=== PATIENT | male | born 1945 | race Caucasian/White ===

== ENCOUNTER 2019-01-19 11:58 | Outpatient (REF) | payer MEDICARE, SELFPAY ==
[2019-01-19 13:41] LABS: TSH (W/Ref FT4) 3.58 uIU/mL (0.36-3.74)
== END 2019-01-19 12:18 ==
LOC: LBN 11:58
PROVIDERS: PCP Family Medicine; Visit Provider Family Medicine
DX: H50.9 Unspecified strabismus (principal); I10 Essential (primary) hypertension; F32.9 Major depressive disorder, single episode, unspecified
CPT/HCPCS: 84443

== ENCOUNTER 2019-01-26 00:44 | Outpatient (CLI) | payer MEDICARE, OTHER, SELFPAY ==
--- NOTE | 2019-01-26 11:20 | DI.MRI_ITS ---
SYMPTOM/DIAGNOSIS: NEW ONSET LATE-LIFE STRABISMUS R/O STROKE/MASS H50.0 STRABISMUS MRI BRAIN: Routine noncontrast examination was performed. The ventricles and sulci are consistent with the patient's age. There is mild global cerebral atrophy. There are areas of hyper intense signal in the white matter on the T2 and FLAIR images most suggestive of small vessel ischemic disease. The diffusion weighted images show no evidence of restricted diffusion. No intracranial hemorrhage is present. No intracranial mass, midline shift or mass effect is identified. The ventricles are intact. The basilar cisterns are patent. A normal flow void is seen in the [place]. Mucous retention cysts or polyps are seen in the maxillary sinuses. There is mild mucosal thickening in the maxillary sinuses and a few ethmoid air cells. IMPRESSION: Cerebral atrophy and small vessel ischemic disease. No evidence of an intracranial mass, hemorrhage or infarct.
== END 2019-01-26 01:04 ==
PROVIDERS: PCP Family Medicine; Visit Provider Family Medicine
DX: H50.89 Other specified strabismus (principal); G31.89 Other specified degenerative diseases of nervous system; I67.9 Cerebrovascular disease, unspecified; J32.8 Other chronic sinusitis
CPT/HCPCS: 70551

== ENCOUNTER → 2019-01-27 10:03 | Outpatient (BNVA) | payer MEDICARE, SELFPAY | PROVIDERS: PCP Family Medicine; Visit Provider Psychiatry & Neurology Neurology | DX: H53.2 Diplopia (principal); H50.10 Unspecified exotropia; I10 Essential (primary) hypertension | CPT/HCPCS: 99203; 99214 ==

== ENCOUNTER 2019-01-27 11:06 | Outpatient (CLI) | payer MEDICARE, OTHER, SELFPAY ==
[2019-02-06 22:11] LABS: Striational(Striated Muscle) A Negative titer (<1:120)
== END 2019-01-27 11:26 ==
PROVIDERS: PCP Family Medicine; Visit Provider Psychiatry & Neurology Neurology
DX: H53.2 Diplopia (principal); H50.10 Unspecified exotropia; I10 Essential (primary) hypertension
CPT/HCPCS: 36415; 99214; 83519; 83520

== ENCOUNTER → 2019-02-02 14:21 | Outpatient (BNVA) | payer MEDICARE, OTHER, SELFPAY | PROVIDERS: PCP Family Medicine; Referring Provider Family Medicine; Visit Provider Surgery | DX: L72.9 Follicular cyst of the skin and subcutaneous tissue, unspecified (principal); I10 Essential (primary) hypertension | CPT/HCPCS: 99203; 99213 ==

== ENCOUNTER 2019-02-17 07:51 | Day surgery (SDC) | payer MEDICARE, OTHER, SELFPAY ==
[2019-02-17 08:10] VITALS: BP 140/93; PULSE 71; RESP 18; TEMP 36.4; O2SAT 99
[2019-02-17] MEDS: Bupivacaine 0.25% Pres-Free 10 ML VIAL (09:00)
--- NOTE | 2019-02-17 09:10 | SKI_PTH ---
PATIENT: Jomar Pualson LOC: [facility] U#:[id number] AGE/SX: 73/M ROOM: RE02/17/[address]: Tawanna Vaca MD : [id number] BED: DIS: 02/17/2019 SPEC #: [id number] RECD: 02/17/19 12:46 STATUS: BABATUNDE REQ #: [id number] MORE: 02/17/19 09:[address]: Tawanna Vaca DEPT: Surgical Specimen RECD BY: Karen Bautista ENTERED: 02/17/19 12:46 SP TYPE: JACKIE PORTER DR: Alec Tabares DO Tissues: 1 - SKIN CYST/TAG/DEBRIDEMENT Procedures: SKIN BIOPSY LEVEL 3 Comments: [id number]
--- NOTE | 2019-02-17 09:20 | PDOC.DSDIS_ITS ---
Discharge Plan Disposition Patient Disposition: HOME Condition: Good Discharge Details Reason For Visit: Excision left cheek skin cyst Attending Provider: Tawanna Vaca Primary Care Provider: Alec Tabares Home Meds and New Rx's Prescriptions: Continued bupropion HCl 150 mg tablet extended release 24 hr 150 mg PO QAM Qty: 90 RF: 3 omeprazole 20 mg capsule,delayed release(DR/EC) 20 mg PO DAILY Qty: 90 RF: 3 flunisolide 25 mcg (0.025 %) spray,non-aerosol 2 spray NS DAILY Qty: 3 RF: 3 amoxicillin 500 MG tablet 2,000 mg PO ONCE RF: 0 atorvastatin 20 mg tablet 20 mg PO DAILY Qty: 90 RF: 3 hydrochlorothiazide 25 mg tablet 25 mg PO DAILY Qty: 90 RF: 3 Discharge Instructions Additional Instructions: May shower as usual Leave the steri strip until it starts to curl up Referrals: Tawanna Vaca MD [ [facility] STAFF PHYSICIAN] - (6-10 days for suture removal) Activity:: Activity as Tolerated Diet:: As Tolerated Discharge Orders Discharge Orders: Discharge Order (Routine); Ordered 02/17/19 Ordered By: Tawanna Vaca DS: Diagnosis Discharge Diagnosis (1) Benign cyst of skin: Status: Acute
--- NOTE | 2019-02-17 11:05 | ROE_ITS ---
REPORT OF OPERATIVE PROCEDURE DATE OF PROCEDURE February 17, 2019 PREOPERATIVE DIAGNOSIS Chronic left cheek skin cyst. POSTOPERATIVE DIAGNOSIS Chronic left cheek skin cyst. PROCEDURE Excision left cheek skin cyst. SURGEON Tawanna Vaca M.D. ANESTHESIA Local. INDICATIONS This is a 73-year-old man with a chronic draining cyst on his left cheek that needs to be evacuated o f its contents every few days. This has been present for several years, but started draining in the p ast three to six months. PROCEDURE DESCRIPTION He was placed supine on the operating table and his left cheek was prepped and draped sterilely. The cyst was located down near the mandible just adjacent to the nasal labial fold region. The skin here was infiltrated with local anesthetic after prepping and draping sterilely. A small elliptical incis ion made to include the cyst opening. The chronic inflammatory cyst was removed sharply down into nor mal fatty tissue. Hemostasis was achieved with cautery. The skin was then closed with interrupted #6- 0 Prolene sutures and dressed with a Steri-Strip. He tolerated the procedure well and was stable to R ecovery. The cyst itself measured about 8 mm with the excision diameter being about 1.2 cm. CC: Alec Tabares D.O.
== END 2019-02-17 09:49 | disposition home or self-care (01) ==
PROVIDERS: PCP Family Medicine; Visit Provider Surgery
PROC: (CPT 11442; principal; 2019-02-17 09:00)
DX: L72.0 Epidermal cyst (principal)
CPT/HCPCS: 11442; 88304

== ENCOUNTER → 2019-02-23 08:52 | Outpatient (BNVA) | payer MEDICARE, OTHER, SELFPAY | PROVIDERS: PCP Family Medicine; Referring Provider Family Medicine; Visit Provider Surgery | DX: Z48.02 Encounter for removal of sutures (principal) ==

== ENCOUNTER 2019-04-15 01:45 | Outpatient (CLI) | payer MEDICARE, OTHER, SELFPAY ==
--- NOTE | 2019-04-15 14:51 | DI.CT_ITS ---
EXAM: CT SINUS WO CLINICAL HISTORY: RETENTION CYST OF NASAL SINUS J34.1, SINUS PRESSURE J34.89, POST NASAL DRIP TECHNIQUE: Noncontrast FINDINGS: There is a mucous retention cyst at the floor of the right maxillary sinus measuring 2 cm. A 10 mil limeter cyst is seen at the floor of the left maxillary sinus. The ostiomeatal complexes appear gill nt. There is minimal mucosal thickening of the ethmoid sinuses. There is norman bullosa of the left middle turbinate. There is minimal nasal septal deviation toward the right. The orbits are unremar kable. IMPRESSION: Mucous retention cysts in both maxillary sinuses.
== END 2019-04-15 02:05 ==
PROVIDERS: PCP Family Medicine; Visit Provider Otolaryngology Otolaryngology/Facial Plastic Surgery
DX: J34.1 Cyst and mucocele of nose and nasal sinus (principal); J34.89 Other specified disorders of nose and nasal sinuses; R09.82 Postnasal drip
CPT/HCPCS: 70486

== ENCOUNTER 2020-03-08 04:37 | Outpatient (CLI) | payer MEDICARE, OTHER, SELFPAY ==
[2020-03-08 09:43] LABS: Anion Gap 4.5 mmol/L (3-11); BUN 25 mg/dL (7-18); CO2 32.5 mmol/L (21.0-32.0); CREATININE 1.05 mg/dL (0.70-1.30); Calculated LDL 139 mg/dL (<100); Chloride 103 mmol/L (98-107); Cholesterol 220 mg/dL (<200); Glucose 102 mg/dL (74-106); HDL Cholesterol 73 mg/dL (40-60); Potassium 4.4 mmol/L (3.5-5.1); Sodium 140 mmol/L (136-145); Triglyceride 41 mg/dL (<150)
== END 2020-03-08 04:57 ==
PROVIDERS: PCP Family Medicine; Visit Provider Family Medicine
DX: I10 Essential (primary) hypertension (principal)
CPT/HCPCS: 36415; 80048; 80061

== ENCOUNTER 2021-04-11 03:50 | Outpatient (CLI) | payer MEDICARE, OTHER, SELFPAY ==
[2021-04-11 22:32] LABS: PSA, Screening 2.7 ng/mL (0.0-6.5)
[2021-04-12 10:40] LABS: HIV-1/2 Ag & Ab Screen Negative (Negative)
[2021-04-12 11:01] LABS: Hepatitis C Ab w Rflx HCV PCR Negative (Negative)
== END 2021-04-11 03:51 | disposition home or self-care (01) ==
LOC: LBO 03:50
PROVIDERS: PCP Family Medicine; Visit Provider Family Medicine
DX: Z11.3 Encounter for screening for infections with a predominantly sexual mode of transmission (principal); Z11.4 Encounter for screening for human immunodeficiency virus [HIV]; Z11.59 Encounter for screening for other viral diseases; Z12.5 Encounter for screening for malignant neoplasm of prostate; Z84.2 Family history of other diseases of the genitourinary system
CPT/HCPCS: 36415; 84153; 86803; 87389

== ENCOUNTER 2022-12-21 00:14 | Outpatient (CLI) | payer MEDICARE, SELFPAY ==
--- NOTE | 2022-12-21 07:24 | DI.MRI_ITS ---
Exam(s) MR BRAIN WO EXAM: MR BRAIN WO CLINICAL HISTORY: 6 months of progressive memory loss, R41.3 TECHNIQUE: Multiplanar multisequence MRI of the brain was performed. CT CT SINUS WO from 04/15/2019 FINDINGS: VENTRICLES AND EXTRA AXIAL SPACES: Normal in size and morphology for the patient's age. MIDLINE SHIFT: None. CEREBRAL PARENCHYMA: No focus of restricted diffusion to suggest acute infarct. No space-occupying le [place] identified. There are several areas of hyperintense signal in the white matter on the T2 and FLA IR images most consistent with small vessel ischemic disease. There is global symmetric volume loss likely reflecting cerebral atrophy. HEMORRHAGE: None. BRAINSTEM/CEREBELLUM: Normal. CALVARIUM: Normal. VISUALIZED PARANASAL SINUSES/MASTOIDS:Mucous retention cysts or polyps are seen in the maxillary sinu ses bilaterally. [place]: Normal flow void. [place]: Unremarkable. OTHER FINDINGS: None. IMPRESSION: 1. Age-related cerebral atrophy and small vessel ischemic disease. 2. No evidence of an acute infarct. DATA REPOSITORY:
== END 2022-12-21 00:34 ==
LOC: DI 00:15
PROVIDERS: PCP Family Medicine; Visit Provider Family Medicine
DX: R41.3 Other amnesia (principal); I67.89 Other cerebrovascular disease
CPT/HCPCS: 70551

== ENCOUNTER 2024-10-12 14:20 | Observation (INO) | payer MEDICARE, SELFPAY ==
[2024-10-12] VITALS (18 sets, daily range): BP systolic 141–147; BP diastolic 72–96; PULSE 53–75; RESP 14–21; TEMP 36.8–37.2; O2SAT 95–98
--- NOTE | 2024-10-12 14:15 | RT.EKG_ITS ---
APPROVED REPORT Exam: Resting ECG Reason for Exam: tia Patient Location: E HR:51 bpm ECG Measurements Heart Rate 51 AXIS ME 186 P 9 QRSd 97 QRS -10 QT 460 T 48 QTc 425 Conclusion Sinus bradycardia 51 noraml axis no stemi
--- NOTE | 2024-10-12 14:48 | ED.GENADUL_ITS ---
Discharge Plan Disposition Patient Disposition: Admit to [facility] Condition: Stable Discharge Details Chief Complaint: AMS/LOC Clinical Impression: TIA (transient ischemic attack) Admit Date/Time: 10/12/24 17:04 Admit Provider: Jakob Hensley Attending Provider: Jakob Hensley Primary Care Provider: Unknown,Unknown ED Provider: Harjinder Ruff HPI General Date/Time Provider Initiated Documentation: 10/12/24 14:28 . HPI Narrative: 79-year-old gentleman with past medical history of depression, hypertension presents for evaluation of speech difficulty. Patient reports that he had been sitting in the car in the parking lot while his went into the grocery store. He states that he started to not feel very well, he felt very hot and flushed. He states that the dog got sick on him and this caused him to feel worse. When the returned to the car, approximately 1 hour after last seeing him, she noted that his speech seemed confused. 911 was called. On 911 arrival, patient was having fluent speech and no confusion. reports that a similar event occurred last year when he had a urinary tract infection in [place]. He states that at that time he was evaluated for a stroke and had an MRI of his brain which did not reveal any abnormality acutely. He reports that he is feeling better now that he is not in the car and no longer feeling hot or flushed. He states that he denies any chest pain or headache. Related Data Home Medications ?Medication ?Instructions ?Recorded ?Confirmed trazodone 50 mg tablet 50 mg PO QHS PRN insomnia #90 tabs 11/05/22 10/12/24 bupropion HCl 150 mg 24 hr tablet, 150 mg PO QAM #90 tabs 06/10/23 10/12/24 extended release flunisolide 25 mcg (0.025 %) nasal See Rx Instructions .Route 10/14/23 10/12/24 spray .COMPLEX #25 mL hydrochlorothiazide 25 mg tablet 25 mg PO DAILY #90 tab-caps 10/14/23 10/12/24 atorvastatin 20 mg tablet 20 mg PO DAILY #90 tab-caps 04/16/24 10/12/24 omeprazole 20 mg capsule,delayed See Rx Instructions .Route 10/08/24 10/12/24 release .COMPLEX #90 caps Previous Rx's ?Medication ?Instructions ?Recorded trazodone 50 mg tablet 50 mg PO QHS PRN insomnia #90 tabs 11/05/22 bupropion HCl 150 mg 24 hr tablet, 150 mg PO QAM #90 tabs 06/10/23 extended release flunisolide 25 mcg (0.025 %) nasal See Rx Instructions .Route 10/14/23 spray .COMPLEX #25 mL hydrochlorothiazide 25 mg tablet 25 mg PO DAILY #90 tab-caps 10/14/23 atorvastatin 20 mg tablet 20 mg PO DAILY #90 tab-caps 04/16/24 omeprazole 20 mg capsule,delayed See Rx Instructions .Route 10/08/24 release .COMPLEX #90 caps Allergies Allergy/AdvReac Type Severity Reaction Status Date / Time oxycodone Allergy Intermediate Itching Verified 10/12/24 17:51 delusion morphine AdvReac delusions, Verified 10/12/24 17:51 confusion General Stated Complaint: AMS/LOC LOLY: 2 Exam Narrative Exam Narrative: Review of Systems: All systems reviewed & are unremarkable except as noted in HPI and below Well-developed, no acute distress NCAT PERRL, normal conjunctiva , no nystagmus Bradycardia no murmur Unlabored respiratory effort , clear bilaterally Nondistended abdomen no focal neurologic deficits, cranial nerves intact, good strength throughout, no past-pointing, gait is normal Course Vital Signs Vital signs: Vital Signs Temperature 36.8 C 10/12/24 14:21 Pulse 60 10/12/24 14:21 Respiratory Rate 15 10/12/24 14:21 Blood Pressure 146/77 H 10/12/24 14:21 Pulse Oximetry 98 10/12/24 14:21 Temperature 36.8 C 10/12/24 14:27 Temperature Source Oral 10/12/24 14:27 Pulse 60 10/12/24 14:27 Respiratory Rate 15 10/12/24 14:27 Respiratory Effort Normal, Non-Labored 10/12/24 14:27 Respiratory Depth Normal 10/12/24 14:27 Respiratory Pattern Normal 10/12/24 14:27 Blood Pressure 146/77 H 10/12/24 14:27 Blood Pressure Position Supine 10/12/24 14:27 Pulse Oximetry 98 10/12/24 14:27 Oxygen Delivery Method Room Air 10/12/24 14:27 Oxygen Flow Rate 0 10/12/24 14:21 Medical Decision Making Emergent evaluation of acute altered mental status now resolved. Initial differential includes vasovagal episode, presyncope, cardiac dysrhythmia, TIA. At this time the patient does not have a focal neurologic deficit to indicate an ongoing CVA process. EKG obtained and independently interpreted: Sinus bradycardia 51 normal axis no STEMI. Will evaluate for metabolic etiologies of his symptoms, get head CT and continue to monitor for any changes in his status. Lab work reviewed, no leukocytosis or anemia. There is no significant electrolyte derangement. Creatinine is 1.5, no priors are available for comparison. Ammonia and free T4 are within normal limits. Troponin is not elevated. Urinalysis does not reveal any infection. CT imaging obtained and that does indicate an acute stroke. Concern for TIA given symptomology, cur rently resolved at this time. Patient not medically optimized, will admit to the hospital for further TIA workup and medical management. Quality:SDOH Health Related Social Needs: No Data to Display PFSH All Active Problems (Updated 10/12/24 @ 19:35 by Harjinder Ruff MD) DVT prophylaxis (Acute) TIA (transient ischemic attack) (Acute) Chronic rhinitis (Chronic 08/14/11) Depressive disorder (Chronic) previously Asya Collins, counselor in past. Essential hypertension (Chronic) previous varied 110 - 148; Gastroesophageal reflux disease without esophagitis (Chronic 08/14/11) EGD 03/2017 neg (path pending) Family hx of alcoholism (Chronic 12/03/12) Other hyperlipidemia (Chronic 11/08/15) Risk 15% calculated 01/2015, Atorvastatin begun Nasal congestion (Acute) Abnormal auditory perception (Acute) Post-nasal drip (Acute) Other insomnia (Acute) Sinus pressure (Acute) Neck pain (Acute 08/14/11) History of alcoholism (Acute 12/03/12) Hernia of anterior abdominal wall (Acute 01/18/15) Exotropia, right eye (Acute) History of sleep apnea (Acute) severe central sleep apnea sleep study 03/01/19 04/08/19-CPAP Titration Study-[facility] Central sleep apnea (Acute) 03/12/19: CPAP 8-18cm D.CESILIA Smith Unspecified disorder of nose and nasal sinuses (Acute 06/16/19) Nasal vestibular stenosis Zamudio Deviated nasal septum (Acute 06/16/19) Zamudio [place]'s disease (Acute) 06/07/20 [facility] History of basal cell cancer (Acute) 06/07/20 Nodular [place] micronodular left supraclavicular(05/2017) Left nasal sidewall (09/2017) excised with Moh's surgery Dry eye of left side (Acute) Family history of prostate cancer in father (Acute) PSA WNL Chronic right shoulder pain (Acute) With loss of ROM, Hx surgical repair? Memory change (Acute) Erectile disorder (Acute) Onychomycosis (Acute) Nail dystrophy (Acute) Onychogryphosis (Acute) Medical History Benign cyst of skin Excision left cheek skin cyst 02/17/19, Dr Tawanna Vaca, [facility] History of gastroesophageal reflux (GERD) Surgical History History of ankle surgery left S/P right rotator cuff repair History of total bilateral knee replacement (TKR) (~03/2014) 2013 both at same time History of tonsillectomy oral surg for sleep apnea (11/10/99) [place], for sleep apnea Repair of inguinal hernia (03/09/15) bilateral: Dr Crystal-R direct,L indirect EGD - MAC (04/09/17) Colonoscopy - IV Sedation (02/25/15) Dr. Zechariah Santana Family History Mother , Alzheimer at age 90. Alzheimers disease Father , Compl Prostate CA at age 87. Personal history of malignant neoplasm Alzheimers disease Sister , Breast Cancer at age 55. No problems noted. Brother , Accident at age 21. No problems noted. Other Family hx of alcoholism Social History (Updated 10/12/24 @ 18:20 by Jakob Hensley) Smoking/Tobacco Use Status: Never Smoking risk assessment performed?: Yes Alcohol Intake: former Year quit: 1989 Drug use: Never Substance use type: does not use Details: pt reports hasnt had any alcohol for 20+ years. Adopted: No Caregiver/Support person: No Foster care: No Household members: spouse Housing: house Number of Children: 2 Communication Needs: None Education Level: college Details: Associates current occupation: retired Current gender identity: male What type of physical activity do you participate in: none and other Details: Stays active Seatbelt use: always Drive intox or ride w/intox residential driver: No Water heater temp set <120 deg: Yes Working smoke detector in home: Yes Fire extinguisher in home: Yes Carbon monox detector in home: Yes Firearms in home: Yes Firearms unloaded and locked: Yes Do you feel safe at home: Yes Do you feel safe in your relationship?: Yes Additional Social history: 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 Just moved back from [place] to [place] with , who has some dementia
[2024-10-12 14:54] LABS: Abs Immature Grans 0.01 10^3/uL (0.0-0.06); Absolute Basophil Count 0.05 10^3/uL (0.0-0.2); Absolute Lymphocyte Count 0.94 10^3/uL (1.2-3.4); Absolute Monocyte Count 0.45 10^3/uL (0.1-0.8); Absolute Neutrophil Count 3.05 10^3/uL (1.2-6.7); Eosinophils % 8.2 %; HCT 43.8 % (40.0-50.0); HGB 14.1 g/dL (13.5-17.5); Immature Grans % 0.2 %; Lymphocytes % 19.2 %; MCH 30.3 pg (27.0-33.0); MCHC 32.2 % (32.0-36.0); MCV 94 fL (80-95); MPV 11.3 fL (8.0-11.0); Monocytes % 9.2 %; Neutrophils % 62.2 %; Platelet Count 146 10^3/uL (130-400); RBC 4.66 10^6/uL (4.36-5.78); RDW 13.8 % (11.8-14.1); RDW-SD 47.6 fL
[2024-10-12 15:14] LABS: Bilirubin Negative (Negative); Blood Negative (Negative); Clarity Clear (Clear); Glucose Negative (Negative); Ketones Negative (Negative); Leukocyte Esterase Negative (Negative); Nitrite Negative (Negative); Urobilinogen 0.2 mg/dL (Up to 0.2)
[2024-10-12 15:25] LABS: TSH (W/Ref FT4) 6.28 uIU/mL (0.36-3.74)
[2024-10-12 15:30] LABS: ETHANOL BLOOD < 3.0 mg/dL (<10)
--- NOTE | 2024-10-12 15:30 | DI.CT_ITS ---
Exam(s) CT BRAIN NECK CTA EXAM: CT BRAIN NECK CTA CLINICAL HISTORY: ams. TECHNIQUE: Imaging Protocol: Axial CT angiography was performed with multi-slice acquisition and mu lti-planar and MIP reconstructions. CONTRAST MATERIAL: Intravenous: Omnipaque 350 Contrast volume:[address] SINUS WO from 04/15/2019 MR MR BRAIN WO from 12/21/2022 FINDINGS: CT Head W/O and W contrast: Ventricles and Extra axial spaces: Normal in size and morphology for the patient's age. Hemorrhage: None. Cerebral parenchyma: No evidence of acute infarct or mass. Mild atrophy. Mild white matter change s of small vessel disease. Midline shift: None. Brainstem/Cerebellum: No acute findings.. Calvarium: Normal. Visualized Paranasal sinuses/Mastoids: Mild mucosal thickening at the floors of the maxillary sinuses . Soft Tissues: Unremarkable. Enhancement: Normal. CTA Brain W: Internal Carotid Arteries: Petrous: Normal. Cavernous: Normal. Cerebral: Normal. Middle Cerebral Arteries: Right: No aneurysm, occlusion or significant stenosis. Left: No aneurysm, occlusion or significant stenosis. Anterior Cerebral Arteries: Right: No aneurysm, occlusion or significant stenosis. Left: No aneurysm, occlusion or significant stenosis. Posterior cerebral Arteries: Right: No aneurysm, occlusion or significant stenosis. Left: No aneurysm, occlusion or significant stenosis. Vertebral Arteries: Right: No aneurysm, occlusion or significant stenosis. Left: No aneurysm, occlusion or significant stenosis. Basilar Artery: No aneurysm, occlusion or significant stenosis. CTA Neck W: Common Carotid: Mild plaque at the bulbs left greater than right.. Right: No dissection, occlusion or significant stenosis. Left: No dissection, occlusion or significant stenosis. External Carotid: Right: No dissection, occlusion or significant stenosis. Left: No dissection, occlusion or significant stenosis. Internal Carotid: Right: Tortuous distally. No dissection, occlusion or significant stenosis. Left: Tortuous distally. No dissection, occlusion or significant stenosis. Vertebral Artery: Right: No dissection, occlusion or significant stenosis. Left: No dissection, occlusion or significant stenosis. Lung Apices: No acute findings. Bones: No acute abnormality. Degenerative changes present in the cervical spine. Soft Tissues: Normal. IMPRESSION: 1. CTA brain: Normal CTA examination of the [place]. 2. Head CT: Unremarkable CT Head. 3. CTA neck: Mild plaque at the common carotid bulbs. No significant stenosis in the carotid or vert ebral arteries. Internal carotid arteries are tortuous bilaterally at the distal portions. RADIATION DOSE DELIVERED: Total DLP DATA REPOSITORY: All CT scans at this facility are submitted to the National Radiology Data Registry (NRDR) Dose Index Registry (DIR) with the [employer] (ACR). RADIATION OPTIMIZATION: All CT scans at this facility use at least one of these dose optimization te chniques: automated exposure control; mA and/or kV adjustment per patient size (includes targeted exa ms where dose is matched to clinical indication); or iterative reconstruction.
[2024-10-12 15:31] LABS: ALT 22 U/L (16-63); AST 22 U/L (15-37); Albumin 3.7 g/dL (3.4-5.0); Alkaline Phosphatase 56 U/L (46-116); Anion Gap 5.2 mmol/L (3-11); BUN 15 mg/dL (7-18); Bilirubin, Total 0.7 mg/dL (0.2-1.0); CO2 34.8 mmol/L (21.0-32.0); CREATININE 1.5 mg/dL (0.70-1.30); Calcium 9.4 mg/dL (8.5-10.1); Chloride 105 mmol/L (98-107); Estimated GFR 47.36 (mL/min/1.73m2); Glucose 167 mg/dL (74-106); Magnesium 2.4 mg/dL (1.8-2.4); Potassium 3.4 mmol/L (3.5-5.1); Sodium 145 mmol/L (136-145); Total Protein 6.4 g/dL (6.4-8.2); Troponin I 10 ng/L (<or=76)
[2024-10-12 16:10] LABS: Ammonia < 10 umol/L (11-32)
[2024-10-12 16:15] LABS: Troponin I 11 ng/L (<or=76)
[2024-10-12] MEDS: Normal Saline - Diluent 50 ML VIAL IJ (16:17)
[2024-10-12] MEDS: Omnipaque 350 MG/ML 100 ML BTL 70 ML IJ (16:17)
[2024-10-12 16:39] LABS: FREE T4 0.92 ng/dL (0.76-1.46)
[2024-10-12] MEDS: Aspirin 325 MG TAB PO (17:46)
[2024-10-12] MEDS: Clopidogrel 300 MG TAB PO (17:47)
[2024-10-12] MEDS: Enoxaparin 40 MG/0.4 ML SYR SC (17:48)
--- NOTE | 2024-10-12 17:52 | HPE_ITS ---
Date of service: 10/12/24 Time of Service: 17:53 Assessment and Plan Assessment and plan (1) TIA (transient ischemic attack): Status: Acute Assessment and plan: Episode of aphasia/MS changes in patient with multiple risk factors for CVA. Current neurologic exam normal. ABCD2 score 4 qualifies as high risk TIA so given ASA and clopidogrel MRI in am tele, discharge on 30 day monitor Echo unless it was just done, requesting records from [place] Get lipids/A1c for risk factor modification (2) Essential hypertension: Status: Chronic Assessment and plan: Hold HCTZ, permissive HTN for the first 48 hours (3) Other hyperlipidemia: Status: Chronic Assessment and plan: increase statin to high intensity, repeat lipids. (4) Depressive disorder: Status: Chronic Assessment and plan: Reports some irritability but not profound depression. COntinue buproprion. (5) Chronic rhinitis: Status: Chronic Assessment and plan: continue nasal steroid (6) Central sleep apnea: Status: Acute Assessment and plan: HCO3 on metabolic panel concerning for CO2 retention/chronic poor ventilation. I will try to get overnight O2 sat to assess. He should have repeat sleep study as outpatient as he had severe central apnea in the past. (7) DVT prophylaxis: Status: Acute Assessment and plan: higher risk, give enoxaparin (8) History of gastroesophageal reflux (GERD): Assessment and plan: change to pantoprozole to avoid clopidogrel intereaction with omeprzole. History of Present Illness History of Present Illness Chief Complaint: altered mental status Narrative: 79 yo M with history of HTN, central sleep apnea not currently treated, mild cognitive impairment, and depression who presented after an episode of confusion earlier this afternoon. He was out shopping with today around noon. He took the dog for a walk then was sitting in the car waiting for her. He started feeling off, foggy headed. His returned and he was slumped with his head down on his chest, when she awakened him he couldn't answer any questions, though he remembers trying to talk. This lasted about 15 minutes. They come to the ED but he was at baseline when he arrived here. He never had chest pain or palpitations or headache. They did not notice facial droop or any assymetry in his movement. No abnormal movement or seizure. No incontinence or tongue biting. No nausea or vomiting. He had a similar episode that lasted days and he was hospitalized in July at [facility] in [place], [place]. He was told this was related to a UTI, which was treated. He states he had a scan, unclear if CT or MRI of his head. He was not given aspirin or clopidogrel. He and his family state he has been a little off since then, less focused mentally. He also describes occaisional positional veritgo which has been happening since then, though not today. He does not use alcohol or any substance. He hasn't changed medications recently. He has not had urinary symptoms. Review of Systems All systems reviewed & are unremarkable except as noted in HPI and below PFSH All Active Problems (Updated 10/12/24 @ 18:25 by Jakob Hensley) DVT prophylaxis (Acute) TIA (transient ischemic attack) (Acute) Onychogryphosis (Acute) Nail dystrophy (Acute) Onychomycosis (Acute) Erectile disorder (Acute) Memory change (Acute) Chronic right shoulder pain (Acute) With loss of ROM, Hx surgical repair? 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 [facility] Deviated nasal septum (Acute 06/16/19) Zamudio Unspecified disorder of nose and nasal sinuses (Acute 06/16/19) Nasal vestibular stenosis Zamudio Central sleep apnea (Acute) 03/12/19: CPAP 8-18cm D.CESILIA Smith History of sleep apnea (Acute) severe central sleep apnea sleep study 03/01/19 04/08/19-CPAP Titration Study-[facility] Exotropia, right eye (Acute) Hernia of anterior abdominal wall (Acute 01/18/15) History of alcoholism (Acute 12/03/12) Neck pain (Acute 08/14/11) Sinus pressure (Acute) Other insomnia (Acute) Post-nasal drip (Acute) Abnormal auditory perception (Acute) Nasal congestion (Acute) Other hyperlipidemia (Chronic 11/08/15) Risk 15% calculated 01/2015, Atorvastatin begun Family hx of alcoholism (Chronic 12/03/12) Gastroesophageal reflux disease without esophagitis (Chronic 08/14/11) EGD 03/2017 neg (path pending) Essential hypertension (Chronic) previous varied 110 - 148; Depressive disorder (Chronic) previously Asya Collins, counselor in past. Chronic rhinitis (Chronic 08/14/11) Medical History Benign cyst of skin Excision left cheek skin cyst 02/17/19, Dr Tawanna Vaca, [facility] History of gastroesophageal reflux (GERD) Surgical History History of ankle surgery left S/P right rotator cuff repair History of total bilateral knee replacement (TKR) (~03/2014) 2013 both at same time History of tonsillectomy oral surg for sleep apnea (11/10/99) [place], for sleep apnea Repair of inguinal hernia (03/09/15) bilateral: Dr Crystal-R direct,L indirect EGD - MAC (04/09/17) Colonoscopy - IV Sedation (02/25/15) Dr. Zechariah Santana Family History Mother , Alzheimer at age 90. Alzheimers disease Father , Compl Prostate CA at age 87. Personal history of malignant neoplasm Alzheimers disease Sister , Breast Cancer at age 55. No problems noted. Brother , Accident at age 21. No problems noted. Other Family hx of alcoholism Social History (Updated 10/12/24 @ 18:20 by Jakob Hensley) Smoking/Tobacco Use Status: Never Smoking risk assessment performed?: Yes Alcohol Intake: former Year quit: 1989 Drug use: Never Substance use type: does not use Details: pt reports hasnt had any alcohol for 20+ years. Adopted: No Caregiver/Support person: No Foster care: No Household members: spouse Housing: house Number of Children: 2 Communication Needs: None Education Level: college Details: Associates current occupation: retired Current gender identity: male What type of physical activity do you participate in: none and other Details: Stays active Seatbelt use: always Drive intox or ride w/intox pick up truck driver: No Water heater temp set <120 deg: Yes Working smoke detector in home: Yes Fire extinguisher in home: Yes Carbon monox detector in home: Yes Firearms in home: Yes Firearms unloaded and locked: Yes Do you feel safe at home: Yes Do you feel safe in your relationship?: Yes Additional Social history: 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 Just moved back from [place] to [place] with , who has some dementia Meds Allergies and Home Medications Allergies Allergy/AdvReac Type Severity Reaction Status Date / Time oxycodone Allergy Intermediate Itching Verified 10/12/24 17:51 delusion morphine AdvReac delusions, Verified 10/12/24 17:51 confusion Home Medications ?Medication ?Instructions ?Recorded ?Confirmed ?Type trazodone 50 mg tablet 50 mg PO QHS PRN insomnia #90 tabs 11/05/22 10/12/24 Rx bupropion HCl 150 mg 24 hr tablet, 150 mg PO QAM #90 tabs 06/10/23 10/12/24 Rx extended release flunisolide 25 mcg (0.025 %) nasal See Rx Instructions .Route 10/14/23 10/12/24 Rx spray .COMPLEX #25 mL hydrochlorothiazide 25 mg tablet 25 mg PO DAILY #90 tab-caps 10/14/23 10/12/24 Rx atorvastatin 20 mg tablet 20 mg PO DAILY #90 tab-caps 04/16/24 10/12/24 Rx omeprazole 20 mg capsule,delayed See Rx Instructions .Route 10/08/24 10/12/24 Rx release .COMPLEX #90 caps Exam Narrative Exam Narrative: GEN: Alert and oriented x 4, pleasant and cooperative, gives linear history though. No acute distress at rest. HEENT: Head atraumatic. Conjunctiva clear, no icterus. PEERL, EOMI. no rhinorrhea. MMM, OP benign. Neck is supple with no masses or lymphadenopathy, trachea midline LUNGS: CTAB with normal effort CV: RRR with no murmurs, gallops, or rubs. no carotid bruits, pulses 2+ alessia ABD: active bowel sounds, soft, nontender and nondistended. No masses. EXT: no cyanosis, clubbing, or edema MSK: No joint redness or swelling NEURO: CN 2-12 intact. Normal FNF, [place], HTS. Negative pronator drift. Normal/symmetric strength of 4 extremities, nl sensation to light touch, DTRs 1+ and symmetric at patella. Normal speech. Nl tone, no tremor. Able to stand, negative rhombeb. SKIN: Few subtle pink patches on back, no other rashes or open wounds. PSYCH: normal mood and affect, normal though process Results Imaging Imaging Studies: CTA head/neck: 1. CTA brain: Normal CTA examination of the [place] of [place]. 2. Head CT: Unremarkable CT Head. 3. CTA neck: Mild plaque at the common carotid bulbs. No significant stenosis in the carotid or vertebral arteries. Internal carotid arteries are tortuous bilaterally at the distal portions. Labs 10/12/24 14:43 10/12/24 14:43 Labs: Laboratory Results - last 24 hr 10/12/24 10/12/24 10/12/24 14:43 14:53 15:45 WBC 4.90 RBC 4.66 Hgb 14.1 Hct 43.8 MCV 94 MCH 30.3 MCHC 32.2 RDW 13.8 Plt Count 146 MPV 11.3 H Immature Gran % 0.2 Neutrophils % 62.2 Lymphocytes % 19.2 Monocytes % 9.2 Eosinophils % 8.2 Basophils % 1.0 Nucleated RBC % 0.0 Absolute Neutrophils 3.05 Absolute Lymphocytes 0.94 L Absolute Monocytes 0.45 Absolute Eosinophils 0.40 Absolute Basophils 0.05 Sodium 145 Potassium 3.4 L Chloride 105 Carbon Dioxide 34.8 H Anion Gap 5.2 BUN 15 Creatinine 1.5 H Est GFR (CKD-EPI 2020) 47.36 Glucose 167 H Calcium 9.4 Magnesium 2.4 Total Bilirubin 0.7 AST 22 ALT 22 Alkaline Phosphatase 56 Ammonia < 10 L Troponin I 10 Total Protein 6.4 Albumin 3.7 TSH 6.28 H Free T4 0.92 Urine Color Yellow Urine Clarity Clear Urine pH 7.0 Ur Specific [place] 1.020 Urine Protein Negative Urine Ketones Negative Urine Blood Negative Urine Nitrite Negative Urine Bilirubin Negative Urine Urobilinogen 0.2 Ur Leukocyte Esterase Negative Urine Glucose Negative Ethyl Alcohol < 3.0 10/12/24 10/12/24 15:49 17:29 WBC RBC Hgb Hct MCV MCH MCHC RDW Plt Count MPV Immature Gran % Neutrophils % Lymphocytes % Monocytes % Eosinophils % Basophils % Nucleated RBC % Absolute Neutrophils Absolute Lymphocytes Absolute Monocytes Absolute Eosinophils Absolute Basophils Sodium Potassium Chloride Carbon Dioxide Anion Gap BUN Creatinine Est GFR (CKD-EPI 2020) Glucose Calcium Magnesium Total Bilirubin AST ALT Alkaline Phosphatase Ammonia Troponin I 11 Cancelled Total Protein Albumin TSH Free T4 Urine Color Urine Clarity Urine pH Ur Specific [place] Urine Protein Urine Ketones Urine Blood Urine Nitrite Urine Bilirubin Urine Urobilinogen Ur Leukocyte Esterase Urine Glucose Ethyl Alcohol Last Vital Signs Temp 36.8 C 10/12/24 14:27 Pulse 62 10/12/24 17:40 Resp 14 10/12/24 16:10 BP 141/72 H 10/12/24 17:07 Pulse Ox 97 10/12/24 17:40 Time Spent Time spent with Patient: 55-74 minutes Time was spent: preparing to see the patient(eg.review tests), obtaining and/or reviewing separately otained hiistory, ordering medications,tests, procedures, referring, communicating with other health laboratory animal caretaker, indepentently interpreting results, counseling the patient and care coordination
[2024-10-12] MEDS: Atorvastatin 40 MG TAB 80 MG PO (19:51)
[2024-10-12] MEDS: Normal Saline Flush 10 ML SYR IVP (19:51)
[2024-10-13 03:14] VITALS: BP 108/58; PULSE 60; RESP 19; TEMP 37; O2SAT 97
--- NOTE | 2024-10-13 07:00 | DI.MRI_ITS ---
Exam(s) MR BRAIN WO EXAM: MR BRAIN WO CLINICAL HISTORY: CVA vs TIA, aphasic TECHNIQUE: Multiplanar multisequence MRI of the brain was performed. COMPARISON: MR MR BRAIN WO from 12/21/[address] BRAIN NECK CTA from 10/12/2024 FINDINGS: VENTRICLES AND EXTRA AXIAL SPACES: Normal in size and morphology for the patient's age. MIDLINE SHIFT: None. CEREBRAL PARENCHYMA: No focus of restricted diffusion to suggest acute infarct. No space-occupying [place] identified. Mild atrophy consistent with the patient's age. Mild to moderate scattered foci of high signal in the white matter consistent with sequela of chronic microvascular disease. BRAINSTEM/CEREBELLUM: Normal. VISUALIZED PARANASAL SINUSES: Small mucous retention cyst in left maxillary sinus. MASTOIDS:Clear. Vasculature: Normal flow void. PITUITARY GLAND: Unremarkable. ORBITS: Unremarkable. IMPRESSION: No evidence of acute hemorrhage or infarct. Atrophy and white matter changes of small vessel disease. DATA REPOSITORY:
[2024-10-13 07:22] LABS: Anion Gap 6.5 mmol/L (3-11); BUN 15 mg/dL (7-18); CO2 31.5 mmol/L (21.0-32.0); CREATININE 1.2 mg/dL (0.70-1.30); Calcium 9.1 mg/dL (8.5-10.1); Chloride 106 mmol/L (98-107); Glucose 98 mg/dL (74-106); Potassium 3.3 mmol/L (3.5-5.1); Sodium 144 mmol/L (136-145)
[2024-10-13 07:27] LABS: Calculated LDL 84 mg/dL (<100); Cholesterol 163 mg/dL (<200); HDL Cholesterol 70 mg/dL (>or=40); Triglyceride 47 mg/dL (<150)
--- NOTE | 2024-10-13 07:27 | PGE_ITS ---
Date of Service Date of service: 10/13/24 Time of Service: 09:41 Assessment and Plan Assessment and plan (1) TIA (transient ischemic attack): Status: Acute Assessment and plan: Episode of aphasia/MS changes in patient with multiple risk factors for CVA. Current neurologic exam normal. ABCD2 score 4 qualifies as high risk TIA so given ASA and clopidogrel Discharge on above neurology referral MRI tele, discharge on 30 day monitor Echo unless it was just done, requesting records from [place]--otherwise outpatient at d/c Lipids panel chol 163-LDL (claculated) 84 - triglycerides 47-HDL 70 -Continue Lipitor at 80 mg daily and f/u outpatient A1C negative at 5.6% PT consult - previously Dx w vertigo and on meclizine at home which her resumed a few days ago d/t recurrence of symptoms (2) Essential hypertension: Status: Chronic Assessment and plan: Hold HCTZ, permissive HTN for the first 48 hours orhto VS negative Resume 10/14 at home (3) Other hyperlipidemia: Status: Chronic Assessment and plan: Increase statin to high intensity, repeat lipids. As per TIA point (4) Depressive disorder: Status: Chronic Assessment and plan: Reports some irritability but not profound depression. On home bupropion dose (5) Chronic rhinitis: Status: Chronic Assessment and plan: ongoing home dose of nasal steroid (6) Central sleep apnea: Status: Acute Assessment and plan: Patient mentioned not been agreeable to sleep study , no low saturation recorded overnight On admission his HCO3 on metabolic panel concerning for CO2 retention/chronic poor ventilation. (7) DVT prophylaxis: Status: Acute Assessment and plan: Continue enoxaparin (8) History of gastroesophageal reflux (GERD): Assessment and plan: Now on pantoprozole to avoid clopidogrel interaction with omeprazole. Consider famotidine Discussed with Dr. Hensley Subjective Subjective Patient reports: feels better, tolerating liquids well, tolerating a regular diet, voiding w/o difficulty and other (minimal dizziness when sitting); denies diarrhea, nausea, vomiting, shortness of breath or afebrile Exam Narrative Exam Narrative: 79 yo male patient lookimg of stated age, alert and oriented x 4 w/o acute distress HEENT: Head atraumatic and normaocephalic , EOMI, , no JVD, no lymphadenopathy NEURO: CN II_IX intact. NIHS 0- negative pronator drift, normal/symmetric strength of 4 extremities, normal speech;minimal dizziness on position change. LUNGS: unlabored breathing , clear lungs CARDIAC: regular rate and rhythm, tele SR HR 61, no murmurs, positive bilateral radial and pedal pulses ABD: non-distended , soft, nontender ; bowel sounds are present PSYCH: normal mood and affect, normal though process Objective Last Vital Signs Temp 37 C 10/13/24 03:14 Pulse 60 10/13/24 03:14 Resp 19 10/13/24 03:14 BP 108/58 L 10/13/24 03:14 Pulse Ox 97 10/13/24 03:14 Laboratory Results - last 24 hr 10/12/24 10/12/24 10/12/24 14:43 14:53 15:45 WBC 4.90 RBC 4.66 Hgb 14.1 Hct 43.8 MCV 94 MCH 30.3 MCHC 32.2 RDW 13.8 Plt Count 146 MPV 11.3 H Immature Gran % 0.2 Neutrophils % 62.2 Lymphocytes % 19.2 Monocytes % 9.2 Eosinophils % 8.2 Basophils % 1.0 Nucleated RBC % 0.0 Absolute Neutrophils 3.05 Absolute Lymphocytes 0.94 L Absolute Monocytes 0.45 Absolute Eosinophils 0.40 Absolute Basophils 0.05 Sodium 145 Potassium 3.4 L Chloride 105 Carbon Dioxide 34.8 H Anion Gap 5.2 BUN 15 Creatinine 1.5 H Est GFR (CKD-EPI 2020) 47.36 Glucose 167 H Calcium 9.4 Magnesium 2.4 Total Bilirubin 0.7 AST 22 ALT 22 Alkaline Phosphatase 56 Ammonia < 10 L Troponin I 10 Total Protein 6.4 Albumin 3.7 TSH 6.28 H Free T4 0.92 Urine Color Yellow Urine Clarity Clear Urine pH 7.0 Ur Specific [place] 1.020 Urine Protein Negative Urine Ketones Negative Urine Blood Negative Urine Nitrite Negative Urine Bilirubin Negative Urine Urobilinogen 0.2 Ur Leukocyte Esterase Negative Urine Glucose Negative Ethyl Alcohol < 3.0 10/12/24 10/12/24 10/13/24 15:49 17:29 06:15 WBC RBC Hgb Hct MCV MCH MCHC RDW Plt Count MPV Immature Gran % Neutrophils % Lymphocytes % Monocytes % Eosinophils % Basophils % Nucleated RBC % Absolute Neutrophils Absolute Lymphocytes Absolute Monocytes Absolute Eosinophils Absolute Basophils Sodium 144 Potassium 3.3 L Chloride 106 Carbon Dioxide 31.5 Anion Gap 6.5 BUN 15 Creatinine 1.2 Est GFR (CKD-EPI 2020) 61.90 Glucose 98 Calcium 9.1 Magnesium Total Bilirubin AST ALT Alkaline Phosphatase Ammonia Troponin I 11 Cancelled Total Protein Albumin TSH Free T4 Urine Color Urine Clarity Urine pH Ur Specific [place] Urine Protein Urine Ketones Urine Blood Urine Nitrite Urine Bilirubin Urine Urobilinogen Ur Leukocyte Esterase Urine Glucose Ethyl Alcohol Time Spent with Patient Time Spent with Patient: >50 minutes Time was spent: preparing to see the patient(eg.review tests), obtaining and/or reviewing separately otacritical access hospital hiistory, ordering medications,tests, procedures, referring, communicating with other health healthcare specialist, indepentently interpreting results, counseling the patient and care coordination
[2024-10-13 07:29] LABS: Hemoglobin A1C 5.6 % (<5.7)
[2024-10-13] MEDS: Normal Saline Flush 10 ML SYR IVP (07:46)
[2024-10-13] MEDS: Pantoprazole 40 MG TABCR PO (07:46)
[2024-10-13] MEDS: Fluticasone NASAL SPRAY 16 GM BTL NS (07:51)
[2024-10-13] MEDS: Clopidogrel 75 MG TAB PO (07:51)
[2024-10-13] MEDS: buPROPion-XL 150 MG TABCR PO (07:51)
[2024-10-13] MEDS: Aspirin 81 MG CHEW PO (07:51)
[2024-10-13 08:01] VITALS: BP 127/84; PULSE 57; RESP 20; TEMP 36.7; O2SAT 97
[2024-10-13 08:14] LABS: Vitamin B12 405 pg/mL (193-986)
--- NOTE | 2024-10-13 08:39 | NUR.NOTE ---
Pt is a/o x 4 and able to make needs known. Sitting up in chair during assessment. Pt stated he did not sleep well last night. Neuro checks have been neg since admission. Pt scheduled for MRI today. Form has been completed and faxed. Pt is on continuous O2 monitor and has been sating steady in the high 90's without dips. Pt denies any pain. LS clear to auscultation and pt has active bowel sounds. All questions were answered. Will continue with plan of care
--- NOTE | 2024-10-13 09:11 | PDOC.CMIN ---
Date of service: 10/13/24 Time of Service: 09:11 Care Management Initial Assmt Initial Assessment Reason for Hospitalization: TIA Functional Status/Living Situation Patient Presentation: Mitesh was sitting up in bed when CM met with him. He was pleasant in manner and agreeable to conversation. Mitesh lives in a single family home in [place] with his Cori. He has 2 children. His daughter lives in [place], [place] and his son is in [place]. They also have 3 grandsons and Cori has children from a previous relationship. Mitesh explained that he and Cori have recently relocated to [place]. They have been spending most of their time in [place] but recently sold their house there. Cori has some early dementia and they felt it would be best to be closer to family. 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 He is independent at baseline and does not require the use of any assistive devices. Town of Residence: [place], [place] Resides with: Spouse ( ) Significant Other/Family: Local (daughter Michelle, son Bryan.) Employment Status: Retired Instrumental Activities of Daily Living (ADLs): Independent Medications Medication Management: No Issues/Barriers identified Physical Functioning/Mobility Assistive Device: none Advance Directives Advance Directives: Do you have an Advance Directive: Y 01/26/19 08:56 AD On File at [facility]: Y 01/26/19 08:56 Date Asked 03/19/14 01/26/19 08:56 AD Date Reviewed 10/12/24 10/12/24 18:08 COLST On File at [facility] COLST Date Scanned Code Status Resuscitation Status DNR Insurance Coverage/Financial Issues Insurance: [employer] medicare Replacement Care Team Visit Care Team Role Provider Type Jazzy Lopes APRN MD [facility] STAFF PHYSICIAN Unknown Unknown Primary Care Provider STAFF PHYSICIAN Harjinder Ruff MD Emergency Provider [facility] STAFF PHYSICIAN Jakob Hensley Admit Provider [facility] STAFF PHYSICIAN Attending Provider Discharge Potential Discharge Needs: Consult (possible neurology consult) and PCP F/U Appt Anticipated Barriers to Discharge: None Identified Patient/Family Education Needs: Review discharge instructions, discuss Ask Me Three Transportation: Private vehicle Plan: Anticipate Mitesh will be discharged home with no new services. He will follow up with his PCP and plan of care and transport with family. CM will follow and continue to assess for discharge needs. Social Determinants of Health Screening Social Determinants of health last assessed in clinic: 10/13/24 Will the Patient Participate in the Screening?: Yes Do you worry about having a steady place to live?: no Problems where you live: no known problems In the past 12 months, have you had to go without electric, gas, oil or water in your home?: no 1. Within the past 12 months, we worried whether our food would run out before we got money to buy more.: Never true 2. Within the past 12 months, the food we bought just didn't last and we didn't have money to get more.: Never true Has lack of transportation kept you from medical appointments or from doing things needed for daily living?: no Has anyone in your life made you feel unsafe or unsupported?: no How hard is it for you to pay for the very basics like food, housing, medical care, and heating? Would you say it is:: Not hard at all Do you want help finding or keeping work or a job?: I do not need or want help If for any reason you need help with day-to-day activities such as bathing, preparing meals, shopping, managing finances, etc., do you get the help you need?: I don?t need any help How often do you feel lonely or isolated from those around you?: Never Do you speak a language other than Serbian at home?: No Does the patient want assistance with any of the above?: No PFSH All Active Problems (Updated 10/12/24 @ 19:35 by Harjinder Ruff MD) DVT prophylaxis (Acute) TIA (transient ischemic attack) (Acute) Chronic rhinitis (Chronic 08/14/11) Depressive disorder (Chronic) previously Asya Collins, counselor in past. Essential hypertension (Chronic) previous varied 110 - 148; Gastroesophageal reflux disease without esophagitis (Chronic 08/14/11) EGD 03/2017 neg (path pending) Family hx of alcoholism (Chronic 12/03/12) Other hyperlipidemia (Chronic 11/08/15) Risk 15% calculated 01/2015, Atorvastatin begun Nasal congestion (Acute) Abnormal auditory perception (Acute) Post-nasal drip (Acute) Other insomnia (Acute) Sinus pressure (Acute) Neck pain (Acute 08/14/11) History of alcoholism (Acute 12/03/12) Hernia of anterior abdominal wall (Acute 01/18/15) Exotropia, right eye (Acute) History of sleep apnea (Acute) severe central sleep apnea sleep study 03/01/19 04/08/19-[facility]AP Titration [facility] Central sleep apnea (Acute) 03/12/19: CPAP 8-18cm D.Sarha, HEALTH UNIT SUPERVISOR Unspecified disorder of nose and nasal sinuses (Acute 06/16/19) Nasal vestibular stenosis Zamudio Deviated nasal septum (Acute 06/16/19) Zamudio [place]'s disease (Acute) 06/07/20 [facility] History of basal cell cancer (Acute) 06/07/20 Nodular [place] micronodular left supraclavicular(05/2017) Left nasal sidewall (09/2017) excised with Moh's surgery Dry eye of left side (Acute) Family history of prostate cancer in father (Acute) PSA WNL Chronic right shoulder pain (Acute) With loss of ROM, Hx surgical repair? Memory change (Acute) Erectile disorder (Acute) Onychomycosis (Acute) Nail dystrophy (Acute) Onychogryphosis (Acute) Medical History Benign cyst of skin Excision left cheek skin cyst 02/17/19, Dr Tawanna Vaca, [facility] History of gastroesophageal reflux (GERD) Surgical History History of ankle surgery left S/P right rotator cuff repair History of total bilateral knee replacement (TKR) (~03/2014) 2014 both at same time History of tonsillectomy oral surg for sleep apnea (11/10/99) [place], for sleep apnea Repair of inguinal hernia (03/09/15) bilateral: Dr Crystal-R direct,L indirect EGD - MAC (04/09/17) Colonoscopy - IV Sedation (02/25/15) Dr. Zechariah Santana Family History Mother , Alzheimer at age 90. Alzheimers disease Father , Compl Prostate CA at age 87. Personal history of malignant neoplasm Alzheimers disease Sister , Breast Cancer at age 55. No problems noted. Brother , Accident at age 21. No problems noted. Other Family hx of alcoholism Social History (Updated 10/12/24 @ 18:20 by Jakob Hensley) Smoking/Tobacco Use Status: Never Smoking risk assessment performed?: Yes Alcohol Intake: former Year quit: 1989 Drug use: Never Substance use type: does not use Details: pt reports hasnt had any alcohol for 20+ years. Adopted: No Caregiver/Support person: No Foster care: No Household members: spouse Housing: house Number of Children: 2 Communication Needs: None Education Level: college Details: Associates current occupation: retired Current gender identity: male What type of physical activity do you participate in: none and other Details: Stays active Seatbelt use: always Drive intox or ride w/intox pick up truck driver: No Water heater temp set <120 deg: Yes Working smoke detector in home: Yes Fire extinguisher in home: Yes Carbon monox detector in home: Yes Firearms in home: Yes Firearms unloaded and locked: Yes Do you feel safe at home: Yes Do you feel safe in your relationship?: Yes Additional Social history: 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 Just moved back from [place] to [place] with , who has some dementia
[2024-10-13] MEDS: Potassium Chloride 20 MEQ TABCR 40 MEQ PO (09:51)
[2024-10-13 10:54] VITALS: BP 118/72; PULSE 64; RESP 18; TEMP 37.4; O2SAT 97
--- NOTE | 2024-10-13 13:04 | W.PM.DS.N ---
Date of service: 10/13/24 Time of Service: 13:04 DS: Diagnosis Discharge Diagnosis (1) TIA (transient ischemic attack): Status: Acute (2) Essential hypertension: Status: Chronic (3) Other hyperlipidemia: Status: Chronic (4) Depressive disorder: Status: Chronic (5) Chronic rhinitis: Status: Chronic (6) Central sleep apnea: Status: Acute (7) DVT prophylaxis: Status: Acute (8) History of gastroesophageal reflux (GERD): Discharge Plan Disposition Patient Disposition: Home Condition: Improving Discharge Details Reason For Visit: TIA Admit Date/Time: 10/12/24 17:04 Admit Provider: Jakob Hensley Attending Provider: Jakbo Hensley Primary Care Provider: Unknown,Unknown Hospital Course Hospital Course: This 79 yo male patient with past medical history of HTN, hyperlipidemia, central sleep apnea, mild cognitive impairment, and depression presented via EMS to the ED on 10/13/24 for evalution of confusion,15-minute transient speech difficulty and loss of consciousness while sitting in his car and earlier this afternoon.The patient had returned to baseline on presentation. Reported similar symptoms lasting for days with hospitalization in July at [facility] in [place], [place] then ongoing BPPV since then for which he take PRN meclizine. Head CT , head and neck CTA were negative for acute finding or actionable items, UA was negative; EKG showed a regular sinusal rhythm and no signs of coronary occlusion. Blood work was unremarkable except for potassium at 3.4 and Cr at 1.5 with a baseline of 1.1. The patient was admitted to the medical surgical floor for further evaluation of TIA/Stroke, KALIA. The MRI was negative for acute brain infarction but showed findings consistent with sequela of chronic microvascular disease. Echocardiogram to be done outpatient. The patient received clopidrogrel and aspirin to be continued respectively for 21 days and life-long. His Lipitor was increased; LDL was 84, A1C was negative. Blood pressure medicines to be resume in AM. On the day of discharge the patient was hemodynamically stable; Cr 1.2. The patient will need a 30-day cardiac event monitor, a follow-up with his PCP; neurology referral was made. Recommendations for outpatient follow-up: Atorvastatin dosing Referral to neurology Echocardiogram w bubble BMP ENT referral needed:MRI: Mucous retention cysts or polyps are seen in the maxillary sinuses bilaterally BPPV f/u Discussed with Dr. Hensley Home Meds and New Rx's Prescriptions: New pantoprazole 40 mg Tablet,Delayed Release (Dr/Ec) 40 mg PO DAILY@0730 Qty: 30 0RF clopidogrel 75 mg Tablet 75 mg PO DAILY Qty: 20 0RF Rx Instructions: Continue as per PCP or neurology follow-up aspirin [Children's Aspirin] 81 mg Tablet,Chewable 81 mg PO DAILY Qty: 30 0RF atorvastatin 40 mg Tablet 80 mg PO 2000 Qty: 60 0RF Continued trazodone 50 mg tablet 50 mg PO QHS PRN (Reason: insomnia) Qty: 90 3RF bupropion HCl 150 mg tablet extended release 24 hr 150 mg PO QAM Qty: 90 3RF flunisolide 25 mcg (0.025 %) spray,non-aerosol See Rx Instructions .ROUTE .COMPLEX Qty: 25 6RF Dose Instruction: USE 2 SPRAYS NASALLY DAILY FOR ALLERGIC RHINITIS Rx Instructions: USE 2 SPRAYS NASALLY DAILY FOR ALLERGIC RHINITIS hydrochlorothiazide 25 mg tablet 25 mg PO DAILY Qty: 90 3RF Rx Instructions: to control BP under 140/90 Discontinued atorvastatin 20 mg tablet 20 mg PO DAILY Qty: 90 3RF omeprazole 20 mg capsule,delayed release(DR/EC) See Rx Instructions .ROUTE .COMPLEX Qty: 90 0RF Dose Instruction: TAKE 1 CAPSULE DAILY FOR GASTROESOPHAGEAL REFLUX DISEASE Rx Instructions: TAKE 1 CAPSULE DAILY FOR GASTROESOPHAGEAL REFLUX DISEASE Discharge Instructions Stand Alone Forms: Nursing Discharge Form Referrals: Alec Tabares DO [OSTEOPATHIC DOCTOR] - (Follow-up with PCP within 7 days of discharge ) Jodie Maddox MD [ [facility] STAFF PHYSICIAN] - (F/u s/p TIA within 1-2 weeks ) Activity:: Activity as Tolerated Equipment/Supplies:: No Equipment Needed Diet:: heart healthy Discharge Orders Other Ambulatory Orders: Cardiac Event Recorder (Routine) Timeframe: [id number] Facility: [facility] - Location: Respiratory Therapy Ordered By: Jazzy NUNEZ echocardiogram w bubbles (Routine) Timeframe: 10 Day Facility: [facility] - Location: DIAGNOSTIC IMAGING Ordered By: Jazzy Lopes DS: Summary Time Spent with Patient providing and/or coordinating discharge services: Greater than 30 minutes Status at Discharge Functional status at discharge: independent ambulation Overall status at discharge: patient is progressing back to baseline Mental Status: mental status grossly normal Speech and Movement: speech and movement normal Mood: congruent mood Affect: normal affect Quality:SDOH Health Related Social Needs: No Data to Display Exam Narrative Exam Narrative: 79 yo male patient lookimg of stated age, alert and oriented x 4 w/o acute distress HEENT: Head atraumatic and normaocephalic , EOMI, , no JVD, no lymphadenopathy NEURO: CN II_IX intact. NIHS 0- negative pronator drift, normal/symmetric strength of 4 extremities, normal speech;minimal dizziness on position change. LUNGS: unlabored breathing , clear lungs CARDIAC: regular rate and rhythm, tele SR HR 61, no murmurs, positive bilateral radial and pedal pulses ABD: non-distended , soft, nontender ; bowel sounds are present PSYCH: normal mood and affect, normal though process Psych Mental Status: mental status grossly normal Speech and Movement: speech and movement normal Mood: congruent mood Affect: normal affect DS: Data Vitals/I&O Vitals and I&O: Vital Signs Temperature 37.4 C 10/13/24 10:54 Temperature Source Temporal Artery Scan 10/13/24 10:54 Pulse 64 10/13/24 10:54 Pulse Rhythm Regular 10/12/24 18:19 Pulse 57 L 10/12/24 17:50 Respiratory Rate 18 10/13/24 10:54 Respiratory Effort Normal 10/12/24 18:19 Respiratory Depth Normal 10/12/24 18:19 Respiratory Pattern Normal 10/12/24 18:19 Blood Pressure 118/72 10/13/24 10:54 Blood Pressure Mean 113 10/12/24 17:46 Blood Pressure Position Supine 10/12/24 14:27 Pulse Oximetry 97 10/13/24 10:54 Oxygen Delivery Method Room Air 10/13/24 10:54 Oxygen Flow Rate 0 10/13/24 10:54 Pain Level 0 10/13/24 08:35 Intake & Output 10/12/24 10/13/24 10/13/24 23:59 11:59 23:59 Intake Total Balance Weight 73.663 kg 72.711 kg Intake: IV Other: Urine Color Yellow Urine Appearance Clear Clear Urine Odor Normal Comment Patient voided ind. in the toilet. Data Completed and Pending Labs on day of discharge: Labs from last 24 hours 10/13/24 10/12/24 10/12/24 06:15 17:29 15:49 WBC RBC Hgb Hct MCV MCH MCHC RDW Plt Count MPV Immature Gran % Neutrophils % Lymphocytes % Monocytes % Eosinophils % Basophils % Nucleated RBC % Absolute Neutrophils Absolute Lymphocytes Absolute Monocytes Absolute Eosinophils Absolute Basophils Sodium 144 Potassium 3.3 L Chloride 106 Carbon Dioxide 31.5 Anion Gap 6.5 BUN 15 Creatinine 1.2 Est GFR (CKD-EPI 2020) 61.90 Glucose 98 Hemoglobin A1c 5.6 Calcium 9.1 Magnesium Total Bilirubin AST ALT Alkaline Phosphatase Ammonia Troponin I Cancelled 11 Total Protein Albumin Triglycerides 47 Total Cholesterol 163 LDL Cholesterol, Calc 84 HDL Cholesterol 70 H Vitamin B12 405 TSH Free T4 Urine Color Urine Clarity Urine pH Ur Specific [place] Urine Protein Urine Ketones Urine Blood Urine Nitrite Urine Bilirubin Urine Urobilinogen Ur Leukocyte Esterase Urine Glucose Ethyl Alcohol 10/12/24 10/12/24 10/12/24 15:45 14:53 14:43 WBC 4.90 RBC 4.66 Hgb 14.1 Hct 43.8 MCV 94 MCH 30.3 MCHC 32.2 RDW 13.8 Plt Count 146 MPV 11.3 H Immature Gran % 0.2 Neutrophils % 62.2 Lymphocytes % 19.2 Monocytes % 9.2 Eosinophils % 8.2 Basophils % 1.0 Nucleated RBC % 0.0 Absolute Neutrophils 3.05 Absolute Lymphocytes 0.94 L Absolute Monocytes 0.45 Absolute Eosinophils 0.40 Absolute Basophils 0.05 Sodium 145 Potassium 3.4 L Chloride 105 Carbon Dioxide 34.8 H Anion Gap 5.2 BUN 15 Creatinine 1.5 H Est GFR (CKD-EPI 2020) 47.36 Glucose 167 H Hemoglobin A1c Calcium 9.4 Magnesium 2.4 Total Bilirubin 0.7 AST 22 ALT 22 Alkaline Phosphatase 56 Ammonia < 10 L Troponin I 10 Total Protein 6.4 Albumin 3.7 Triglycerides Total Cholesterol LDL Cholesterol, Calc HDL Cholesterol Vitamin B12 TSH 6.28 H Free T4 0.92 Urine Color Yellow Urine Clarity Clear Urine pH 7.0 Ur Specific [place] 1.020 Urine Protein Negative Urine Ketones Negative Urine Blood Negative Urine Nitrite Negative Urine Bilirubin Negative Urine Urobilinogen 0.2 Ur Leukocyte Esterase Negative Urine Glucose Negative Ethyl Alcohol < 3.0 PFSH All Active Problems (Updated 10/12/24 @ 19:35 by Harjinder Ruff MD) DVT prophylaxis (Acute) TIA (transient ischemic attack) (Acute) Chronic rhinitis (Chronic 08/14/11) Depressive disorder (Chronic) previously Asya Collins, counselor in past. Essential hypertension (Chronic) previous varied 110 - 148; Gastroesophageal reflux disease without esophagitis (Chronic 08/14/11) EGD 03/2017 neg (path pending) Family hx of alcoholism (Chronic 12/03/12) Other hyperlipidemia (Chronic 11/08/15) Risk 15% calculated 01/2015, Atorvastatin begun Nasal congestion (Acute) Abnormal auditory perception (Acute) Post-nasal drip (Acute) Other insomnia (Acute) Sinus pressure (Acute) Neck pain (Acute 08/14/11) History of alcoholism (Acute 12/03/12) Hernia of anterior abdominal wall (Acute 01/18/15) Exotropia, right eye (Acute) History of sleep apnea (Acute) severe central sleep apnea sleep study 03/01/19 04/08/19-[facility]AP Titration Study-[facility] Central sleep apnea (Acute) 03/12/19: CPAP 8-18cm D.CESILIA Smith Unspecified disorder of nose and nasal sinuses (Acute 06/16/19) Nasal vestibular stenosis Zamudio Deviated nasal septum (Acute 06/16/19) Zamudio [place]'s disease (Acute) 06/07/20 [facility] History of basal cell cancer (Acute) 06/07/20 Nodular [place] micronodular left supraclavicular(05/2017) Left nasal sidewall (09/2017) excised with Moh's surgery Dry eye of left side (Acute) Family history of prostate cancer in father (Acute) PSA WNL Chronic right shoulder pain (Acute) With loss of ROM, Hx surgical repair? Memory change (Acute) Erectile disorder (Acute) Onychomycosis (Acute) Nail dystrophy (Acute) Onychogryphosis (Acute) Medical History Benign cyst of skin Excision left cheek skin cyst 02/17/19, Dr Tawanna Vaca, [facility] History of gastroesophageal reflux (GERD) Surgical History History of ankle surgery left S/P right rotator cuff repair History of total bilateral knee replacement (TKR) (~03/2014) 2013 both at same time History of tonsillectomy oral surg for sleep apnea (11/10/99) [place], for sleep apnea Repair of inguinal hernia (03/09/15) bilateral: Dr Crystal-R direct,L indirect EGD - MAC (04/09/17) Colonoscopy - IV Sedation (02/25/15) Dr. Zechariah Santana Family History Mother , Alzheimer at age 90. Alzheimers disease Father , Compl Prostate CA at age 87. Personal history of malignant neoplasm Alzheimers disease Sister , Breast Cancer at age 55. No problems noted. Brother , Accident at age 21. No problems noted. Other Family hx of alcoholism Social History (Updated 10/12/24 @ 18:20 by Jakob Hensley) Smoking/Tobacco Use Status: Never Smoking risk assessment performed?: Yes Alcohol Intake: former Year quit: 1989 Drug use: Never Substance use type: does not use Details: pt reports hasnt had any alcohol for 20+ years. Adopted: No Caregiver/Support person: No Foster care: No Household members: spouse Housing: house Number of Children: 2 Communication Needs: None Education Level: college Details: Associates current occupation: retired Current gender identity: male What type of physical activity do you participate in: none and other Details: Stays active Seatbelt use: always Drive intox or ride w/intox racing car driver: No Water heater temp set <120 deg: Yes Working smoke detector in home: Yes Fire extinguisher in home: Yes Carbon monox detector in home: Yes Firearms in home: Yes Firearms unloaded and locked: Yes Do you feel safe at home: Yes Do you feel safe in your relationship?: Yes Additional Social history: 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 Just moved back from [place] to [place] with , who has some dementia Time Spent with Patient Time Spent with Patient: 70-84 minutes4 Time was spent: preparing to see the patient(eg.review tests), obtaining and/or reviewing separately otained hiistory, ordering medications,tests, procedures, referring, communicating with other health home care aide, indepentently interpreting results, counseling the patient and care coordination
--- NOTE | 2024-10-13 15:35 | NT_ITS ---
PT Notes Visit Reasons: TIA (cardiology) Pt approached for PT evaluation. Nurse was bringing him to the elevator for discharge to home. Nurse Jodie reported pt to be moving independently in room. PT eval was not completed prior to discharge. [employer] aware evaluation was not completed and recommended pt follow up with PCP.
--- NOTE | 2024-10-13 15:42 | PDOC.CMDIS ---
Date of service: 10/13/24 Time of Service: 15:42 LACE Index Scoring Tool Questions: Length of Stay (in days): 1 Was the patient admitted via the E.D.?: Yes Comorbidities: Cerebrovascular Disease and Any Tumor E.D. Visits: 1 Answers: Total Score: 8 Risk of Readmission: Low Risk Care Management Discharge Plan Reason for Hospitalization: Tia Discharge Plan: Mitesh will be discharged home with no new services. He will follow up with his PCP and plan of care and transport with family. Patient/Family Education Needs: Review discharge instructions, discuss Ask Me Three [facility] Health Related Social Needs: No Data to Display
== END 2024-10-13 14:33 | disposition home or self-care (01) | DRG 69 ==
LOC: ER 14:23 → MS 19:35
PROVIDERS: Admitting Provider Family Medicine; Emergency Provider Emergency Medicine; PCP Family Medicine; Responsible Provider Nurse Practitioner Acute Care; Visit Provider Family Medicine
DX: G45.9 Transient cerebral ischemic attack, unspecified (principal); R47.01 Aphasia; N17.9 Acute kidney failure, unspecified; I10 Essential (primary) hypertension; E78.49 Other hyperlipidemia; F32.A Depression, unspecified; G47.31 Primary central sleep apnea; J31.0 Chronic rhinitis; K21.9 Gastro-esophageal reflux disease without esophagitis; G31.84 Mild cognitive impairment of uncertain or unknown etiology; G89.29 Other chronic pain; M25.511 Pain in right shoulder; Z86.718 Personal history of other venous thrombosis and embolism; B35.1 Tinea unguium; L11.1 Transient acantholytic dermatosis [Grover]; Z96.653 Presence of artificial knee joint, bilateral; J34.1 Cyst and mucocele of nose and nasal sinus
CPT/HCPCS: 00123; 36415; 36416; 70496; 70498; 80048; 80053; 80061; 82962; 93005; 96372; 99285; J1650; 70551; 80320; 81003; 82140; 82607; 83036; 83735; 84439; 84443; 84484; 85025; 93010; 99223; 99239; J3490

== ENCOUNTER 2024-10-29 09:20 | Outpatient (CLI) | payer MEDICARE, SELFPAY | END 2024-10-29 09:21 | disposition home or self-care (01) | PROVIDERS: PCP Family Medicine; Visit Provider Nurse Practitioner Acute Care | DX: G45.9 Transient cerebral ischemic attack, unspecified (principal) | CPT/HCPCS: 93270 ==

== ENCOUNTER → 2024-11-05 14:14 | Outpatient (BNVA) | payer MEDICARE, SELFPAY | PROVIDERS: PCP Family Medicine; Referring Provider Family Medicine; Visit Provider Psychiatry & Neurology Neurology | DX: I63.9 Cerebral infarction, unspecified (principal); R42 Dizziness and giddiness; I10 Essential (primary) hypertension; Z87.820 Personal history of traumatic brain injury | CPT/HCPCS: 99215; G2212 ==

== ENCOUNTER 2024-11-27 00:18 | Outpatient (CLI) | payer MEDICARE, SELFPAY ==
--- NOTE | 2024-11-27 07:30 | DI.US_ITS ---
APPROVED REPORT EXAM: Comprehensive 2D, Doppler, and color-flow Echocardiogram Patient Location: Out-Patient [facility] Operator: Itz Painter RDCS (AE) Indications: TIA Other Information Study Quality: Fair Conclusion Normal left ventricular wall thickness and chamber size. Ejection fraction is 55%. Wall motion is n ormal Normal right ventricular size and function Both atria are normal in size There are no structural valvular abnormalities Mild aortic regurgitation Ascending aorta measures 3.69 cm Wall motion Left Ventricle The left ventricle is normal size. Left ventricular systolic function is normal. The left ventricular ejection fraction is within the normal range. There is normal left ventricular wall thickness. There is normal LV segmental wall motion. There is no ventricular septal defect visualized. LVEF is 52-55% . Right Ventricle The right ventricle is normal size. The right ventricular systolic function is normal. Atria The left atrium size is normal. The right atrium size is normal. The interatrial septum is intact wit h no evidence for an atrial septal defect. Aortic Valve The aortic valve is normal in structure. Aortic valve is trileaflet. There is no aortic valvular sten osis. Mild aortic regurgitation. Mitral Valve The mitral valve is normal in structure. No evidence of mitral valve stenosis. Trace mitral regurgita tion. Tricuspid Valve The tricuspid valve is normal in structure. There is no tricuspid valve stenosis. Trace tricuspid reg urgitation. Pulmonic Valve The pulmonary valve is normal in structure. There is no pulmonic valvular stenosis. Mild to moderate pulmonic regurgitation. Great Vessels Aortic root is mildly dilated. The ascending aorta is mildly dilated. Aortic arch is not well visual ized. IVC is normal in size and collapses >50% with inspiration. Pericardium There is no pericardial effusion. 2D Dimensions IVSD d PLAX 0.89 cm M: 0.6-1.2 Ao Root d 3.88 cm M: 3.1 - 3.7 LVPW d PLAX 0.88 cm M: 0.6 - 1.2 Ao Asc Diam d 3.69 cm M: 2.6 - 3.4 LVID d PLAX 4.98 cm M: 4.2 - 5.8 LVDs 3.56 cm M: 2.5 - 4.0 LV EF Teichholz 54.7 % FS 28.46 % LV EDV (Teich) 117.3 mL LV ESV (Teich) 53.2 mL Stroke Vol Index (Teich) 34.13 M-Mode TAPSE 2.20 cm (M/F) >1.7 Auto EF LV EDV A4C 109.6 mL LV EDV A2C 105.6 mL LV EDV BP 108.2 mL LV ESV A4C 52.9 mL LV ESV A2C 51.2 mL LV ESV BP 52.1 mL LVEF(%) A4C 51.7 % LVEF(%) A2C 51.5 % LVEF(%) BP 51.8 % LV SV A4C 56.7 ml LV SV A2C 54.4 ml LV SV BP 56.1 ml LV CO A4C 3.2 L/min LV CO A2C 3.1 L/min LV CO BP 3.1 L/min HR A4C 55.90 BPM HR A2C 57.24 BPM LV EDV Index (BP) LA Volume LA Length A4C 3.5 cm LA Length A2C 5.1 cm LA Area A4C s 9.82 cm2 LA Area A2C s 15.25 cm2 LA Vol A4C A-L 23.60 mL LA Vol A2C A-L 39.10 mL LA Vol Biplane A-L 36.6 mL LA Vol/BSA A4C A-L LA Vol/BSA A2C A-L LA Vol/BSA BP A-L 19.5 mL/m2 LA Vol A4C MOD 22.2 mL LA Vol A2C MOD 37.7 mL LA Vol BP MOD 34.8 mL RA Volume RA Area A4C 8.7 cm2 RA ESV A4C (A-L) 17.2mL RA Vol/BSA A4C A-L RA Length A4C 3.8 cm RA ESV A4C (MOD) 16.2mL LV Diastology MV E' medial 0.063 (>0.07 m/s) MV E Vmax 0.41 (0.4-1.3 m/s) MV E/E' MED 6.53 (<14) MV A Vmax 0.55 (0.4-1.3 m/s) MV E' lateral 0.065 (>0.1 m/s) E/A Ratio 0.7 MV E/E' LAT 6.37 (<14) MV E' Average 0.064 m/s MV E/E'(average) 6.45 Aortic Valve AoV Vmax 0.97 m/s LVOT Vmax 0.72 m/s AoV Peak Grad 27.3 mmHg LVOT Peak Grad 2.1 mmHg AoV Area (Vmax) 2.84 cm2 LVOT VTI 0.183 m AoV VTI 0.235 m LVOT Mean Grad 1.1 mmHg AoV Mean Yoan. 0.74 m/s LVOT SV 70.22 mL AoV Mean Grad 2.4 mmHg LVOT Diam s 2.20 cm AoV Area (VTI) 2.98 cm2 AV Regurg Peak Gr. 3.78 mmHg Velocity Ratio 0.74 AR Decel [place] 1.0m/sec2 AR DT 3598 msec AR PHT 1043 msec AR Vmax 3.56 m/s Mitral Valve MV DT 348 (160-240 msec) Pulmonary Valve PV Vmax 0.68 (0.5-1.5 m/s) RVOT Vmax 0.57 m/s PV Peak Grad 1.9 mmHg RVOT Peak Gr. 1.3 mmHg PV Mean Yoan 0.47 m/s RVOT VTI 0.134 m PV Mean Grad 1.0 mmHg RVOT Mean Gr. 0.6 mmHg Tricuspid Valve RA Pressure 3.00 mmHg TV S' 0.11 m/s
--- NOTE | 2024-12-01 14:25 | W.CARDEVENT ---
Date of service: 12/01/24 Time of Service: 14:25 Cardiac Event Recorder Referring Provider:: Jazzy Lopes Indications:: TIA Cardiac Event Note: This is a cardiac event monitor. Patient was monitored for 26 days and 8 hours. Rhythm throughout was sinus with an average heart rate of 75. Minimum was 58, maximum 126. There were no significant ventricular dysrhythmias. There was no atrial fibrillation, no high-grade AV block, no pauses greater than 3 seconds. No symptoms were reported
== END 2024-11-27 00:38 ==
LOC: DI 00:18
PROVIDERS: PCP Family Medicine; Visit Provider Internal Medicine Cardiovascular Disease
DX: G45.9 Transient cerebral ischemic attack, unspecified
CPT/HCPCS: 93272; 93306

== ENCOUNTER → 2025-01-19 08:08 | Outpatient (BNVA) | payer MEDICARE, SELFPAY | PROVIDERS: PCP Family Medicine; Referring Provider Family Medicine; Visit Provider Psychiatry & Neurology Neurology | DX: G45.9 Transient cerebral ischemic attack, unspecified (principal); R42 Dizziness and giddiness; G56.21 Lesion of ulnar nerve, right upper limb; Z87.19 Personal history of other diseases of the digestive system; I10 Essential (primary) hypertension; Z79.02 Long term (current) use of antithrombotics/antiplatelets | CPT/HCPCS: 99214 ==

== ENCOUNTER 2025-01-26 10:43 | Outpatient (CLI) | payer MEDICARE, SELFPAY ==
[2025-01-26 15:30] LABS: Calculated LDL 59 mg/dL (<100); Cholesterol 133 mg/dL (<200); HDL Cholesterol 65 mg/dL (>or=40); Triglyceride 48 mg/dL (<150)
== END 2025-01-26 10:44 | disposition home or self-care (01) ==
LOC: LBO 10:43
PROVIDERS: PCP Family Medicine; Visit Provider Family Medicine
DX: G45.9 Transient cerebral ischemic attack, unspecified (principal)
CPT/HCPCS: 36415; 80061